=== PATIENT | female | born 1980 | race Caucasian/White ===

== ENCOUNTER 2020-04-06 09:36 | Emergency (ER) | payer BC, SELFPAY ==
[2020-04-06 09:47] VITALS: BP 133/100; PULSE 103; RESP 20; TEMP 36.7; O2SAT 99
[2020-04-06] MEDS: LORazepam INJ (*CRX) 2 MG/ML VIAL 0.5 MG IV PUSH (10:06)
[2020-04-06] MEDS: NITROGLYCERIN SL 0.4 MG TABLET SUBLINGUAL (10:20)
[2020-04-06 10:41] VITALS: BP 127/77; PULSE 89; RESP 18; O2SAT 99
[2020-04-06 11:04] VITALS: BP 119/76; PULSE 80; RESP 18; O2SAT 100
--- NOTE | 2020-04-06 11:14 | ED.GENADULT ---
HPI - General Adult General Chief complaint: Skin/Abscess/Foreign Body Stated complaint: Food lodge in throat Time Seen by Provider: 04/06/20 09:55 Source: patient and family Mode of arrival: ambulatory Limitations: no limitations History of Present Illness HPI narrative: Patient comes in with a bit of ordaz stuck in her throat she says. This happened about 9am. She states she has been very uncomfortable since then. This has been ongoing since that time, unrelieved by measures taken at home. Related Data Home Medications Medication Instructions Recorded Confirmed buspirone 10 mg PO DAILY 04/06/20 04/06/20 meclizine 12.5 mg PO DAILY 04/06/20 04/06/20 montelukast 10 mg PO DAILY 04/06/20 04/06/20 Allergies Allergy/AdvReac Type Severity Reaction Status Date / Time erythromycin base Allergy Unknown Verified 09/14/11 16:07 escitalopram Allergy Unknown Verified 09/14/11 16:07 Penicillins Allergy Unknown Verified 09/14/11 16:07 ESCITALOPRAM OXALATE Allergy Uncoded 03/21/12 17:49 Review of Systems Review of Systems: Narrative: Review of symptoms negative except as above. [facility] Past Medical History Medical History Anxiety disorder Surgical History Surgical History (Updated 04/06/20 @ 18:13 by Shaji Cat MD) No significant past surgical history Family History Family History Grandparent Family history of osteoporosis Mother Family history of osteoporosis Hypertension Father Family history of mental disorder Social History Social History Smoking status: Never smoker Alcohol intake: current Exam Const: General: ill appearing Orientation/consciousness: patient oriented x3 HENMT: Head: normal to inspection General nose exam: Normal nares present Face and sinus: normal facial exam Eyes: Conjunctivae: conjunctivae normal Neck: Neck: normal visual inspection Chest: Chest palpation & inspection: normal inspection of the chest Resp: Effort & Inspection: normal respiratory effort Cardio: Rate: regular rate Rhythm: regular rhythm GI: GI Palp: Yes Soft to palpation Back/Spine/Pelvis: Back: no CVA tenderness Skin: General skin exam: normal color Neuro: General: patient oriented x3 Extrem: General: normal to inspection Psych: Appearance: grossly normal Mental Status: mental status grossly normal Thought content: Yes Normal thought content present Course Course Emergency Course: She was given nitroglycerin 1 tablet, and this seem to help her pass this bit of ordaz. She passed it right away. Vital Signs Vital signs: Vital Signs Temperature 36.7 C 04/06/20 09:47 Pulse Rate 103 H 04/06/20 09:47 Respiratory Rate 20 04/06/20 09:47 Blood Pressure 133/100 H 04/06/20 09:47 Pulse Oximetry 99 04/06/20 09:47 Temperature 36.7 C 04/06/20 09:47 Pulse Rate 80 04/06/20 11:04 Respiratory Rate 18 04/06/20 11:04 Blood Pressure 119/76 04/06/20 11:04 Pulse Oximetry 100 04/06/20 11:04 Medical Decision Making Vital Signs Vital Signs: Vital Signs Temperature 36.7 C 04/06/20 09:47 Pulse Rate 103 H 04/06/20 09:47 Respiratory Rate 20 04/06/20 09:47 Blood Pressure 133/100 H 04/06/20 09:47 Pulse Oximetry 99 04/06/20 09:47 Temperature 36.7 C 04/06/20 09:47 Pulse Rate 80 04/06/20 11:04 Respiratory Rate 18 04/06/20 11:04 Blood Pressure 119/76 04/06/20 11:04 Pulse Oximetry 100 04/06/20 11:04 Discharge Plan Discharge Clinical Impression: Esophageal foreign body Qualifiers: Encounter type: initial encounter Qualified Code(s): T18.108A - Unspecified foreign body in esophagus causing other injury, initial encounter Patient Disposition: Home, Self-Care Condition: Stable Instructions: Nitroglycerin (By mouth), Esophageal Foreign Body (ED) Additional Instruction
== END 2020-04-06 11:22 | disposition home or self-care (01) ==
PROVIDERS: Emergency Provider Emergency Medicine; PCP Internal Medicine
DX: T18.108A Unspecified foreign body in esophagus causing other injury, initial encounter (principal)
CPT/HCPCS: 96374; 99283; 99284; A9270; J2060

== ENCOUNTER 2020-05-04 07:00 | Outpatient (CLI) | payer BC, SELFPAY ==
--- NOTE | ~2020-05-04 | MR_ITS ---
EXAMINATION: MR brain/brain stem wo con DATE: 05/04/2020 08:04 INDICATION: Dizziness. Headache. TECHNIQUE: Magnetic resonance imaging (MRI) of the brain and brainstem was performed without intraven ous contrast. Sequences included sagittal and axial T1-weighted FSE, axial diffusion-weighted FS EPI, axial T2*-weighted GRE, axial T2-weighted FLAIR Propeller, and axial T2-weighted Propeller. Apparent diffusion coefficient (ADC) maps were created. COMPARISON: None. FINDINGS: There is no intracranial hemorrhage, acute infarction, or abnormal intracranial mass lesion . The ventricles are normal in size. The orbits are normal. The paranasal sinuses are clear. The mast oid air cells are normal. IMPRESSION: 1. Normal brain. Reviewed, dictated and finalized at location A. [facility] [employer]ST[employer] IMPRESSION: 1. Normal brain.
== END 2020-05-04 07:01 | disposition home or self-care (01) ==
LOC: CHSIMG 07:02
PROVIDERS: PCP Internal Medicine; Visit Provider Internal Medicine
DX: R42 Dizziness and giddiness (principal); R51.9 Headache, unspecified
CPT/HCPCS: 70551